=== PATIENT | male | born 1955 | race Caucasian/White ===

== ENCOUNTER 2016-11-21 17:04 | Emergency (ER) | payer OTHER ==
--- NOTE | 2016-11-21 18:21 | ED ORDER SUMMARY ---
..... Patient: CINTHIA JACKSON OrderSheet [facility] VisitID: [id number] [place] [address] 61y, M Registration Date/Time: 11/21/2016 ORDER SHEET Weight: 70.7 kg (stated) Allergies: Tape, Calamine, Latex, Penicillins, Phenergan, Trazodone GENERAL ORDERS: CBC w Diff Urgent (17:33 11/21/2016 EKoroleva P.A.-C) (17:42 JBoardley R.N.) POC Glucose (18:32 11/21/2016 EKoroleva P.A.-C) (19:00 Fernando R.N.) MEDICATION ORDERS: - (oxycodone 5 mg po now) (17:33 11/21/2016 EKoroleva P.A.-C) (Ack 17:34 JBoardley R.N.) (17:59 JBoardley R.N.) IV FLUIDS: ORDER SHEET NOTES: [Electronically signed by Antoinette DelgadoACamila-C (18:37 11/21/2016)] [Electronically signed by Megan Jessica R.N. (19:24 11/21/2016)] [Electronically locked/signed by Megan Jessica R.N. (19:24 11/21/2016)]
--- NOTE | 2016-11-21 18:21 | ED ORDER SUMMARY ---
..... Patient: CINTHIA JACKSON OrderSheet [facility] VisitID: [id number] [place] [address] 61y, M Registration Date/Time: 11/21/2016 ORDER SHEET Weight: 70.7 kg (stated) Allergies: Tape, Calamine, Latex, Penicillins, Phenergan, Trazodone GENERAL ORDERS: CBC w Diff Urgent (17:33 11/21/2016 EKoroleva P.A.-C) (17:42 JBoardley R.N.) POC Glucose (18:32 11/21/2016 EKoroleva P.A.-C) (19:00 Fernando R.N.) MEDICATION ORDERS: - (oxycodone 5 mg po now) (17:33 11/21/2016 EKoroleva P.A.-C) (Ack 17:34 JBoardley R.N.) (17:59 JBoardley R.N.) IV FLUIDS: ORDER SHEET NOTES: [Electronically signed by Antoinette DelgadoACamila-C (18:37 11/21/2016)] [Electronically signed by Megan Jessica R.N. (19:24 11/21/2016)] [Electronically locked/signed by Megan Jessica R.N. (19:24 11/21/2016)]
--- NOTE | 2016-11-21 18:21 | ED NURSING NOTES ---
Clinical Report - Nurses [address] [place] [address] 11/21/2016 17:05 Patient: CINTHIA JACKSON TRIAGE Triage time 17:11. Acuity: LEVEL 3. Chief Complaint: BACK PAIN. Alert. No acute distress. AVIVA COMA SCORE: Aviva Coma Scale: 15- eyes open spontaneously (4); best verbal response- oriented x 4 (5); best motor response- obeys commands (6). --17:31 Megan Jessica R.N. 17:09 11/21/16. BP: 167/83. HR: 94. RR: 16. O2 saturation: 96% on room air. Temp: 98.1 F (oral). Pain level now: 06/04. --17:31 Megan Jessica R.N. Weight: 70.7 kg stated. Height/Length: 63 inches Per Patient. BMI: 27.6. --17:30 Megan Jessica R.N. Medications Ativan Oral, last dose 3 days ago, ran out (taken away by new doctor about 4 months ago). --17:15 Megan Jessica R.N. HydrOXYzine HCl Oral 50 mg, 4x a day as needed. Tizanidine HCl Oral 4 mg 2 tabs, 4x a day (out). --17:16 Megan Jessica R.N. AmLODIPine Besylate Oral. --17:17 Megan Jessica R.N. Benadryl Oral. --17:17 Megan Jessica R.N. Combivent Respimat Inhalation. --17:17 Megan Jessica R.N. Flovent Diskus Inhalation. --17:17 Megan Jessica R.N. Medication/allergy information source: the patient and other. --17:31 Megan Jessica R.N. Allergies Tape. --17:18 Megan Jessica R.N. Calamine. Latex. Penicillins. Phenergan. Trazodone . --17:18 Megan Jessica R.N. History Arrived by EMS. Historian: EMS and patient. Accompanied by (EMS). Primary physician (Winston Westbrook). This is a recurrent problem. ( his pain clinic closed in May 2016, he had a Dilaudid Pain Pump removed 11/07/2016, he took too much of the Oxycodone and ran out, [facility] refused to refill; was also taking ativan and methadone that the wouldn't refill, seen @ clinic today(11/21/16)). History of recent trauma- fall (1 week). Occurred at home. Treatment ARMATURE WINDER: EMS treatment ARMATURE WINDER verbally communicated and report reviewed. See report. Finger stick glucose performed (145). Upon arrival patient awake. PAST MEDICAL HX: ( has apt @ Meth[facility]one clinic in 2 weeks). SOCIAL HX: Light tobacco smoker- less than 1/2 a pack per day. History of drug use: marijuana. No alcohol use. FALL RISK ASSESSMENT: Fall risk assessment completed. Risk factors identified include severe pain and patient history of fall and impairment of mobility. Fall interventions initiated. Patient placed on stretcher. Side rails up x2. Brakes on Bed in low position. FUNCTIONAL ASSESSMENT: Functional assessment performed: requires assistance with the activities of daily living; mobility impairment present- this mobility impairment is an ongoing problem. LEARNING NEEDS ASSESSMENT: A learning needs assessment was performed. Factors affecting the patient's ability to learn include motivation and physical limitations. --17:31 Megan Jessica R.N. PROBLEMS: Restless Legs Syndrome. COPD - Chronic Obstructive Pulmonary Disease. Myofascial Strain. Diabetes Mellitus. Hypertension. --17:22 Megan Jessica R.N. ADDITIONAL SURGERIES: Back Surgery. Tonsillectomy. --17:22 Megan Jessica R.N. Assessment GENERAL / NEURO / PSYCH: Alert. Oriented X 4. Appears in no acute distress. Patient appears calm and cooperative. RESPIRATORY: Respirations not labored. SKIN: Skin is warm and dry. --17:31 Megan Jessica R.N. Interventions ID and allergy band on patient. To treatment room. --17:31 Megan Jessica R.N. PHYSICAL ASSESSMENT 17:32 11/21/16. To room via stretcher. Patient gowned. GENERAL / NEURO / PSYCH: Alert. Oriented X 4. Appears in no acute distress. RESPIRATORY: Respirations not labored. --17:32 Megan Jessica R.N. NURSING PROGRESS NOTES 17:32 11/21/16. Head of bed elevated. Call light placed in reach. Side rails up x 2. Bed placed in lowest position. Brakes of bed on. --17:32 Megan Jessica R.N. 17:42 11/21/16. Blood samples drawn by lab. --17:42 Diogo Bowers R.N. 17:59 11/21/2016 Oxycodone PO 5 mg given. Allergies verified, confirmed 5 rights and sedative warning given to the patient. --17:59 Diogo Bowers R.N. 17:59 11/21/16. --17:59 Diogo Bowers R.N. 17:59 11/21/16. BP: 146/77. HR: 92. RR: 18. O2 saturation: 98% on room air. --17:59 Diogo Bowers R.N. 17:59 11/21/16. Patient informed about reason for wait and about plan of care. --18:00 Diogo Bowers R.N. 18:35. The patient is calm and resting quietly. Overall patient status is improved- he states feels better. GENERAL / NEURO / PSYCH: Alert. Oriented X 4. RESPIRATORY: No respiratory distress. SKIN: Skin is warm and dry. --19:01 Megan Jessica R.N. 18:35. Finger stick glucose: 84 mg/dL; performed by nurse; result shown to the PA. --19:22 Megan Jesisca R.N. DISPOSITION / DISCHARGE Departure time: 1834. Condition at departure: improved and stable. Fall risk assessment completed. Risk factors identified include severe pain and patient impairment of mobility. No learning barriers present. Discharge instructions provided and reviewed with the patient. Reviewed medication(s). Prescription(s) given to the patient. Patient verbalized understanding. Written instructions provided in Maltese. The patient was discharged home and unaccompanied at time of discharge. He left the Emergency Department ambulatory and via ([employer]). --19:19 Megan Jessica R.N. 18:59 11/21/16. BP: 143/80. HR: 89. RR: 16. O2 saturation: 97% on room air. Pain level now: 03/04. --19:19 Megan Jessica R.N. 18:35 sandwich, cheese and milk given @ DC. --19:23 Megan Jessica R.N. Locked/Released at 11/21/2016 19:24 by Megan Jessica R.N.
--- NOTE | 2016-11-21 18:21 | ED NURSING NOTES ---
Clinical Report - Nurses [address] [place] [address] 11/21/2016 17:05 Patient: CINTHIA JACKSON TRIAGE Triage time 17:11. Acuity: LEVEL 3. Chief Complaint: BACK PAIN. Alert. No acute distress. AVIVA COMA SCORE: Aviva Coma Scale: 15- eyes open spontaneously (4); best verbal response- oriented x 4 (5); best motor response- obeys commands (6). --17:31 Megan Jessica R.N. 17:09 11/21/16. BP: 167/83. HR: 94. RR: 16. O2 saturation: 96% on room air. Temp: 98.1 F (oral). Pain level now: 06/04. --17:31 Megan Jessica R.N. Weight: 70.7 kg stated. Height/Length: 63 inches Per Patient. BMI: 27.6. --17:30 Megan Jessica R.N. Medications Ativan Oral, last dose 3 days ago, ran out (taken away by new doctor about 4 months ago). --17:15 Megan Jessica R.N. HydrOXYzine HCl Oral 50 mg, 4x a day as needed. Tizanidine HCl Oral 4 mg 2 tabs, 4x a day (out). --17:16 Megan Jessica R.N. AmLODIPine Besylate Oral. --17:17 Megan Jessica R.N. Benadryl Oral. --17:17 Megan Jessica R.N. Combivent Respimat Inhalation. --17:17 Megan Jessica R.N. Flovent Diskus Inhalation. --17:17 Megan Jessica R.N. Medication/allergy information source: the patient and other. --17:31 Megan Jessica R.N. Allergies Tape. --17:18 Megan Jessica R.N. Calamine. Latex. Penicillins. Phenergan. Trazodone . --17:18 Megan Jessica R.N. History Arrived by EMS. Historian: EMS and patient. Accompanied by (EMS). Primary physician (Winston Westbrook). This is a recurrent problem. ( his pain clinic closed in May 2016, he had a Dilaudid Pain Pump removed 11/07/2016, he took too much of the Oxycodone and ran out, [facility] refused to refill; was also taking ativan and methadone that the wouldn't refill, seen @ clinic today(11/21/16)). History of recent trauma- fall (1 week). Occurred at home. Treatment ARTIST MODEL: EMS treatment ARTIST MODEL verbally communicated and report reviewed. See report. Finger stick glucose performed (145). Upon arrival patient awake. PAST MEDICAL HX: ( has apt @ Methadone clinic in 2 weeks). SOCIAL HX: Light tobacco smoker- less than 1/2 a pack per day. History of drug use: marijuana. No alcohol use. FALL RISK ASSESSMENT: Fall risk assessment completed. Risk factors identified include severe pain and patient history of fall and impairment of mobility. Fall interventions initiated. Patient placed on stretcher. Side rails up x2. Brakes on Bed in low position. FUNCTIONAL ASSESSMENT: Functional assessment performed: requires assistance with the activities of daily living; mobility impairment present- this mobility impairment is an ongoing problem. LEARNING NEEDS ASSESSMENT: A learning needs assessment was performed. Factors affecting the patient's ability to learn include motivation and physical limitations. --17:31 Megan Jessica R.N. PROBLEMS: Restless Legs Syndrome. COPD - Chronic Obstructive Pulmonary Disease. Myofascial Strain. Diabetes Mellitus. Hypertension. --17:22 Megan Jessica R.N. ADDITIONAL SURGERIES: Back Surgery. Tonsillectomy. --17:22 Megan Jessica R.N. Assessment GENERAL / NEURO / PSYCH: Alert. Oriented X 4. Appears in no acute distress. Patient appears calm and cooperative. RESPIRATORY: Respirations not labored. SKIN: Skin is warm and dry. --17:31 Megan Jessica R.N. Interventions ID and allergy band on patient. To treatment room. --17:31 Megan Jessica R.N. PHYSICAL ASSESSMENT 17:32 11/21/16. To room via stretcher. Patient gowned. GENERAL / NEURO / PSYCH: Alert. Oriented X 4. Appears in no acute distress. RESPIRATORY: Respirations not labored. --17:32 Megan Jessica R.N. NURSING PROGRESS NOTES 17:32 11/21/16. Head of bed elevated. Call light placed in reach. Side rails up x 2. Bed placed in lowest position. Brakes of bed on. --17:32 Megan Jessica R.N. 17:42 11/21/16. Blood samples drawn by lab. --17:42 Diogo Bowers R.N. 17:59 11/21/2016 Oxycodone PO 5 mg given. Allergies verified, confirmed 5 rights and sedative warning given to the patient. --17:59 Diogo Bowers R.N. 17:59 11/21/16. --17:59 Diogo Bowers R.N. 17:59 11/21/16. BP: 146/77. HR: 92. RR: 18. O2 saturation: 98% on room air. --17:59 Diogo Bowers R.N. 17:59 11/21/16. Patient informed about reason for wait and about plan of care. --18:00 Diogo Bowers R.N. 18:35. The patient is calm and resting quietly. Overall patient status is improved- he states feels better. GENERAL / NEURO / PSYCH: Alert. Oriented X 4. RESPIRATORY: No respiratory distress. SKIN: Skin is warm and dry. --19:01 Megan Jessica R.N. 18:35. Finger stick glucose: 84 mg/dL; performed by nurse; result shown to the PA. --19:22 Megan Jessica R.N. DISPOSITION / DISCHARGE Departure time: 1834. Condition at departure: improved and stable. Fall risk assessment completed. Risk factors identified include severe pain and patient impairment of mobility. No learning barriers present. Discharge instructions provided and reviewed with the patient. Reviewed medication(s). Prescription(s) given to the patient. Patient verbalized understanding. Written instructions provided in Yakut. The patient was discharged home and unaccompanied at time of discharge. He left the Emergency Department ambulatory and via ([employer]). --19:19 Megan Jessica R.N. 18:59 11/21/16. BP: 143/80. HR: 89. RR: 16. O2 saturation: 97% on room air. Pain level now: 03/04. --19:19 Megan Jessica R.N. 18:35 sandwich, cheese and milk given @ DC. --19:23 Megan Jessica R.N. Locked/Released at 11/21/2016 19:24 by Megan Jessica R.N.
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
--- NOTE | 2016-11-21 19:25 | ED MED RECONCILIATION SUMMARY ---
Patient: CINTHIA JACKSON Medication Reconciliation Report [facility] VisitID: [id number] [place] [address] 61y, M Registration Date/Time: 11/21/2016 Weight: 70.7 kg Height/Length: 63 in. BMI: 27.6 ALLERGIES: Calamine, Latex, Penicillins, Phenergan, Tape, Trazodone The patient's Home Medications are listed below: THE FOLLOWING MEDICATIONS NEED TO BE RECONCILED: AmLODIPine Besylate Oral Ativan Oral, last dose: 3 days ago, ran out , taken away by new doctor about 4 months ago Benadryl Oral Combivent Respimat Inhalation Flovent Diskus Inhalation HydrOXYzine HCl Oral 50 mg, 4x a day Tizanidine HCl Oral 4 mg 2 tabs, 4x a day, out The source(s) of the original Home Medication information: patient other The following Medications were given to the patient in the Emergency Department: Oxycodone [PO] PO 5 mg, administered: 11/21/2016 5:59:00 PM The following Medications were prescribed to the patient: Oxycodone 5 mg tablets: take 1 orally every 6 hours as needed for pain. Dispense five (5). No refill.(#5) -- Antoinette Delgado P.A.-C
--- NOTE | 2016-11-21 19:25 | ED MAR SUMMARY ---
..... Medication Administration Record [facility] [address] [place] [address] Patient: CINTHIA JACKSON Visit ID: [id number] 61y, M Weight: 70.7 kg Height/Length: 63 in BMI: 27.6 ALLERGIES: Penicillins, Trazodone , Phenergan, Latex, Calamine, Tape Given 17:59 11/21/2016 Diogo Bowers R.N. Medication Administered: OXYCODONE [PO], Dose: 5 mg PO. Medication Ordered: - (oxycodone 5 mg po now).
--- NOTE | 2016-11-21 19:25 | ED MED RECONCILIATION SUMMARY ---
Patient: CINTHIA JACKSON Medication Reconciliation Report [facility] VisitID: [id number] [place] [address] 61y, M Registration Date/Time: 11/21/2016 Weight: 70.7 kg Height/Length: 63 in. BMI: 27.6 ALLERGIES: Calamine, Latex, Penicillins, Phenergan, Tape, Trazodone The patient's Home Medications are listed below: THE FOLLOWING MEDICATIONS NEED TO BE RECONCILED: AmLODIPine Besylate Oral Ativan Oral, last dose: 3 days ago, ran out , taken away by new doctor about 4 months ago Benadryl Oral Combivent Respimat Inhalation Flovent Diskus Inhalation HydrOXYzine HCl Oral 50 mg, 4x a day Tizanidine HCl Oral 4 mg 2 tabs, 4x a day, out The source(s) of the original Home Medication information: patient other The following Medications were given to the patient in the Emergency Department: Oxycodone [PO] PO 5 mg, administered: 11/21/2016 5:59:00 PM The following Medications were prescribed to the patient: Oxycodone 5 mg tablets: take 1 orally every 6 hours as needed for pain. Dispense five (5). No refill.(#5) -- Antoinette Delgado P.A.-C
--- NOTE | 2016-11-21 19:25 | ED MAR SUMMARY ---
..... Medication Administration Record [facility] [address] [place] [address] Patient: CINTHIA JACKSON Visit ID: [id number] 61y, M Weight: 70.7 kg Height/Length: 63 in BMI: 27.6 ALLERGIES: Penicillins, Trazodone , Phenergan, Latex, Calamine, Tape Given 17:59 11/21/2016 Diogo Bowers R.N. Medication Administered: OXYCODONE [PO], Dose: 5 mg PO. Medication Ordered: - (oxycodone 5 mg po now).
--- NOTE | 2016-11-21 19:25 | ED DISCHARGE INSTRUCTIONS ---
Patient: CINTHIA JACKSON General Instructions [facility] VisitID: [id number] [place] [address] 61y, M Registration Date/Time: 11/21/2016 Chronic lumbar back pain. Post Op Complications (contact dermatitis at abdomen). INSTRUCTIONS Protect wound and keep wound area clean. Apply bacitracin twice daily. Prescription Medications: Oxycodone 5 mg tablets: take 1 orally every 6 hours as needed for pain. Dispense five (5). No refill. (#5) Follow-up: Follow up with your doctor tomorrow. Understanding of the discharge instructions verbalized by patient. ADDITIONAL INFORMATION Back Pain [Acute Or Chronic] Back pain is usually caused by an injury to the muscles or ligaments of the spine. Sometimes the disks that separate each bone in the spine may bulge and cause pain by pressing on a nearby nerve. Back pain may also appear after a sudden twisting/bending force (such as in a car accident), after a simple awkward movement, or lifting something heavy with poor body positioning. In either case, muscle spasm is often present and adds to the pain. Acute back pain usually gets better in one to two weeks. Back pain related to disk disease, arthritis in the spinal joints or spinal stenosis (narrowing of the spinal canal) can become chronic and last for months or years. Unless you had a physical injury (for example, a car accident or fall) X-rays are usually not ordered for the initial evaluation of back pain. If pain continues and does not respond to medical treatment, x-rays and other tests may be performed at a later time. Home Care: You may need to stay in bed the first few days. But, as soon as possible, begin sitting or walking to avoid problems with prolonged bed rest (muscle weakness, worsening back stiffness and pain, blood clots in the legs). When in bed, try to find a position of comfort. A firm mattress is best. Try lying flat on your back with pillows under your knees. You can also try lying on your side with your knees bent up towards your chest and a pillow between your knees. Avoid prolonged sitting. This puts more stress on the lower back than standing or walking. During the first two days after injury, apply an ICE PACK to the painful area for 20 minutes every 2-4 hours. This will reduce swelling and pain. HEAT (hot shower, hot bath or heating pad) works well for muscle spasm. You can start with ice, then switch to heat after two days. Some patients feel best alternating ice and heat treatments. Use the one method that feels the best to you. You may use acetaminophen (Tylenol) or ibuprofen (Motrin, Advil) to control pain, unless another pain medicine was prescribed. [NOTE: If you have chronic liver or kidney disease or ever had a stomach ulcer or GI bleeding, talk with your doctor before using these medicines.] Be aware of safe lifting methods and do not lift anything over 15 pounds until all the pain is gone. Follow Up with your doctor or this facility if your symptoms do not start to improve after one week. Physical therapy may be needed. [NOTE: If X-rays were taken, they will be reviewed by a radiologist. You will be notified of any new findings that may affect your care.] Get Prompt Medical Attention if any of the following occur: Pain becomes worse or spreads to your legs Weakness or numbness in one or both legs Loss of bowel or bladder control Numbness in the groin or genital area You have been given the following additional information: Back Pain (Acute Or Chronic) (Electronically signed by Antoinette Delgado P.A.-C 11/21/2016 18:37)
== END 2016-11-21 18:35 | disposition home or self-care (01) ==
LOC: ED SRH 17:04
DX: M54.5 Low back pain (principal); G89.29 Other chronic pain; L25.8 Unspecified contact dermatitis due to other agents; J44.9 Chronic obstructive pulmonary disease, unspecified; E11.9 Type 2 diabetes mellitus without complications; I10 Essential (primary) hypertension; Z79.899 Other long term (current) drug therapy; F17.210 Nicotine dependence, cigarettes, uncomplicated; Z88.0 Allergy status to penicillin; Z88.8 Allergy status to other drugs, medicaments and biological substances
CPT/HCPCS: 90074; 90098; 95059

== ENCOUNTER 2016-11-30 18:47 | Emergency (ER) | payer OTHER ==
--- NOTE | 2016-11-30 22:00 | ED ORDER SUMMARY ---
..... Patient: CINTHIA JACKSON OrderSheet [facility] VisitID: [id number] [place] [address] 61y, M Registration Date/Time: 11/30/2016 ORDER SHEET Weight: 68.4 kg (stated) Allergies: Calamine, Latex, Penicillins, Phenergan, Tape, Trazodone , Sulfamethoxazole GENERAL ORDERS: CBC w Diff Urgent (19:34 11/30/2016 TBowen R.N. per protocol) (Ack 19:34 TBowen R.N.) (19:34 TBowen R.N.) CMP Urgent (19:34 11/30/2016 TBowen R.N. per protocol) (Ack 19:34 TBowen R.N.) (19:34 TBowen R.N.) Chest 2V Urgent (21:22 11/30/2016 Sandip GIRON) (Ack 21:23 SRedmond) (21:51 MCampbell) MEDICATION ORDERS: Doxycycline Monohydrate PO 100 mg (NOW) (21:38 11/30/2016 Sandip GIRON) (21:57 TBowen R.N.) IV FLUIDS: IV NS : initial bolus 1000 mL (1000 mL/hr), then none - (NOW) (20:12 11/30/2016 Sandip GIRON) (20:29 TBowen R.N.) Zofran IV 8 mg (NOW) (20:12 11/30/2016 Sandip GIRON) (20:29 TBowkenji R.N.) ORDER SHEET NOTES: [Electronically signed by Maude Kohli R.N. (22:10 11/30/2016)] [Electronically signed by Chanel Olivares MD (22:12 12/05/2016)] [Electronically locked/signed by Maude Kohli R.N. (22:10 11/30/2016)]
--- NOTE | 2016-11-30 22:00 | ED NURSING NOTES ---
Clinical Report - [facility] [address] [place] [address] 11/30/2016 18:47 Patient: CINTHIA JACKSON TRIAGE Triage time 19:Nov 30 2016. Acuity: LEVEL 3. Chief Complaint: ABDOMINAL PAIN. Alert. No acute distress. --19:16 Lorna East R.N. 19:09 11/30/16. BP: 141/75. HR: 99. RR: 18. O2 saturation: 97%. Temp: 98.2 F. Pain level now 06/04. --19:16 Lorna East R.N. Weight: 68.4 kg stated. Height/Length: 63 inches Per Patient. BMI: 26.7. --19:09 Lorna East R.N. Medications AmLODIPine Besylate Oral. Ativan Oral, last dose 3 days ago, ran out (taken away by new doctor about 4 months ago). Benadryl Oral. Combivent Respimat Inhalation. Flovent Diskus Inhalation. HydrOXYzine HCl Oral 50 mg, 4x a day as needed. Tizanidine HCl Oral 4 mg 2 tabs, 4x a day (out). --19:12 Lorna East R.N. Medication/allergy information source: the patient. --19:16 Lorna East R.N. Allergies Calamine. Latex. Penicillins. Phenergan. Tape. Trazodone . --19:12 Lorna East R.N. Sulfamethoxazole. (pt states he broke out with a rash while taking this. Last dose was 11/29/16.) --19:13 Lorna East R.N. History Arrived by EMS. Historian: patient. Primary physician (Dr. Gage Cook [facility]). ( Intra Thecal Pain pump removed from the abdomen on the right side of abdomen on November 07 at the . Pt now has redness and possible infection at the site. (most care is at the ). Pt lives in [place], came up here because he will not go to [employer]. Pt will take [facility] home. Pt also concerned about a cough he has.). Treatment WOOD BUFFER: None. PAST MEDICAL HX: Immunizations: seasonal influenza. SOCIAL HX: Former smoker. History of drug use: marijuana. No alcohol use. No recent travel. No infectious disease exposure. No known contact with a sick individual. FALL RISK ASSESSMENT: Fall risk assessment completed. No fall risk identified. NUTRITIONAL RISK ASSESSMENT: The nutritional risk assessment revealed no deficiencies. FUNCTIONAL ASSESSMENT: Functional assessment: no impairments noted. LEARNING NEEDS ASSESSMENT: The learning needs assessment revealed no barriers. SKIN INTEGRITY ASSESSMENT: Skin integrity risk assessment completed. No skin integrity risk identified. --19:16 Lorna East R.N. PROBLEMS: Back Pain. Restless Legs Syndrome. COPD - Chronic Obstructive Pulmonary Disease. Myofascial Strain. Diabetes Mellitus. Hypertension. --19:13 Lorna East R.N. ADDITIONAL SURGERIES: Back Surgery. Tonsillectomy. --19:13 Lorna East R.N. Interventions ID band on patient. To room. --19:16 Lorna East R.N. PHYSICAL ASSESSMENT To room via stretcher. ( pt has redness to RLQ pt states is from a surg, it is tender to the touch and has some swelling). GENERAL / NEURO / PSYCH: Alert. Oriented X 4. Appears in no acute distress. HEENT: Mucous membranes are pink. RESPIRATORY: Respirations not labored. Breath sounds within normal limits. CVS: Normal sinus rhythm noted. Capillary refill less than 2 seconds. GI / : Abdominal scar present in the right lower quadrant. SKIN: Skin is warm. Skin rash. --19:27 Olinda Barrera NURSING PROGRESS NOTES Patient ready for evaluation- ED physician and TACKING STITCH REMOVER notified. --19:16 Lorna East R.N. 19:25 11/30/2016 Site #1 started via IV in the right forearm with an 20g angiocath, with aseptic technique and good blood return; two attempts. Blood drawn: rainbow set. Labeled in the presence of the patient and sent to the lab. Saline lock flushed with saline. --19:25 TonyaB, R.N. Patient identifiers checked. Call light placed in reach. Side rails up x 1. Bed placed in lowest position. Brakes of bed on. --19:25 Olinda Barrera 20:11/30/2016 Zofran (Ondansetron HCl) IVP 4 mg given over 2 minute(s) via site #1. Allergies verified and confirmed 5 rights. IV patency established. IV site checked: no pain, redness, or swelling. IV flushed thoroughly pre- and post-medication administration. IVP given by RN. --20:29 Olinda Barrera 20:29 11/30/2016 Started bag #1 1000 mL IV Fluids IV NS (Saline); at 1000 mL/hr over 1 hour(s) via site #1 via dial-a-flow. Allergies verified and confirmed 5 rights. IV patency established. IV site checked: no pain, redness, or swelling. IV flushed thoroughly pre- and post-medication administration. --20:29 Olinda Barrera 21:43 11/30/2016 IV Fluids IV NS Discontinued: bag #1 completed upon discharge. Total amount infused: 1000 mL. IV patency established. IV site checked: no pain, redness, or swelling. IV flushed thoroughly. --22:08 Olinda Barrera 21:57 11/30/2016 DOXYCYCLINE MONOHYDRATE PO 100 mg given. Allergies verified and confirmed 5 rights. --21:57 Olinda Barrera DISPOSITION / DISCHARGE 22:11/30/2016 Site #1 removed upon discharge. Catheter intact. Bandaid applied. --22: Olinad Barrera Departure time: 22:10. Condition at departure: improved. No learning barriers present. Reviewed warnings. Reviewed medication(s) side effects, precautions, dosing and course information. Prescription(s) given to the patient. Follow up contact number follow up with PCP. Patient verbalized understanding. Written instructions provided in Maltese. No treatment instructions, referrals given to the patient, diet instructions, activity restrictions or note given. No stop smoking instructions. The patient was discharged by the physician. He was discharged home and unaccompanied at time of discharge. He left the Emergency Department in a wheelchair and via private vehicle. Driving ([employer]). FALL RISK ASSESSMENT: Fall risk assessment completed. No fall risk identified. --22:10 Olinda Barrera 22:08 11/30/16. BP: 148/75. HR: 72. RR: 18. O2 saturation: 97%. Temp: 98.2 F. Pain level now: 10/05. --22:10 Olinda Barrera Locked/Released at 11/30/2016 22:10 by Olinda Barrera
--- NOTE | 2016-11-30 22:00 | ED CLINICAL REPORT ---
Clinical Report - Physicians/Mid Levels [facility] [address] [place] [address] 11/30/2016 18:47 Patient: CINTHIA JACKSON Time Seen: 19:27. Arrived- By private vehicle. Historian- patient. HISTORY OF PRESENT ILLNESS Chief Complaint: ABDOMINAL PAIN and VOMITING cough. At its maximum, severity described as moderate. When seen in the E.D., severity described as moderate. Modifying factors. Not worsened by anything. Not relieved by anything. It is described as cramping and it is described as located in the left upper quadrant. This started yesterday for vomiting; 3 days ago for cough; Pt also c/o infection at incision site. and is still present. The patient has had nausea and vomiting. No diarrhea. No recent travel. Similar symptoms previously: Recent medical care: Not recently seen/assessed. REVIEW OF SYSTEMS No constipation, black stools, hematemesis, difficulty with urination or pain with urination. No urinary frequency, fever, headache, sore throat or blurred vision. No chest pain, difficulty breathing, joint pain, skin rash or chills. No back pain. The patient has had a cough. No productive cough. All systems otherwise negative, except as recorded above. PAST HISTORY Problems: Back Pain. Restless Legs Syndrome. COPD - Chronic Obstructive Pulmonary Disease. Myofascial Strain. Diabetes Mellitus. Hypertension. Additional Surgeries: Back Surgery. Tonsillectomy. Medications: AmLODIPine Besylate Oral. Ativan Oral, last dose 3 days ago, ran out (taken away by new doctor about 4 months ago). Benadryl Oral. Combivent Respimat Inhalation. Flovent Diskus Inhalation. HydrOXYzine HCl Oral 50 mg, 4x a day as needed. Tizanidine HCl Oral 4 mg 2 tabs, 4x a day (out). Allergies: Calamine. Latex. Penicillins. Phenergan. Sulfamethoxazole. (pt states he broke out with a rash while taking this. Last dose was 11/29/16.) Tape. Trazodone . SOCIAL HISTORY Former smoker. History of drug use: marijuana. No alcohol use. ADDITIONAL NOTES The nursing notes have been reviewed. PHYSICAL EXAM Vital Signs: 11/30/2016 19:09 BP: 141/75. HR: 99. RR: 18. O2 saturation: 97%. Temp: 98.2 F. Have been reviewed. Appearance: Alert. Oriented X3. No acute distress. Eyes: Pupils equal, round and reactive to light. Eyes normal inspection. ENT: Nose normal. Neck: Normal inspection. CVS: Normal heart rate and rhythm. Heart sounds normal. Pulses normal. Respiratory: No respiratory distress. Breath sounds normal. Abdomen: Soft. Moderate tenderness in the left upper quadrant. No guarding or rebound tenderness. (Pt has a healing incision site with erythema and excoriations surrounding, on his R abdomen. No wound dehiscence or induration.). Back: Normal inspection. No CVA tenderness. Skin: Skin warm and dry. Extremities: Extremities exhibit normal ROM. No lower extremity edema. Neuro: Oriented X 3. No motor deficit. No sensory deficit. LABS, X-RAYS, AND EKG Laboratory Tests: CBC w Diff: (EDGAR: 11/30/2016 19:20) ( MsgRcvd 11/30/2016 20:33) Final results Test Result Flag Units (Reference) WHITE BLOOD COUNT 8.2 K/uL (4.5-11.5) RED BLOOD COUNT 4.97 M/uL (4.50-5.90) HEMOGLOBIN 12.7 L gm/dL (13.5-17.5) HEMATOCRIT 38.7 L % (41.0-53.0) MEAN CELL VOLUME 78 L fL (80-100) MEAN CORPUSCULAR HGB 26 pg (26-34) MEAN CORPUSCULAR HGB CONC 33 g/dL (31-37) RED CELL DISTRIBUTION WIDTH 20.3 H % (11.6-14.8) PLATELET COUNT 149 L K/uL (150-400) NEUTROPHIL % 75.1 H % (50-75) LYMPH % 12.6 L % (25-40) MONO % 8.3 % (3-14) EOSINOPHIL % 4.0 % (0-4) BASOPHIL % 0 % (0-2) RBC MORPHOLOGY 2+ ANISOCYTOSIS CMP: (EDGAR: 11/30/2016 19:20) ( MsgRcvd 11/30/2016 20:18) Final results Test Result Flag Units (Reference) GLUCOSE 110 mg/dL (70-110) BUN 6 L mg/dL (7-18) CREATININE 0.9 mg/dL (0.6-1.3) Estimated GFR >60 mL/min Estimated GFR- >60 mL/min Note: Persistent reduction over 3 months in eGFR<60 mL/min/1.73 m2 defines CKD. Patients with eGFR values>=60 mL/min/1.73 m2 may also have CKD if evidence ofpersistent proteinuria. Additional information may be foundat www.kidney.org. SODIUM 139 mmol/L (136-145) POTASSIUM 3.7 mmol/L (3.5-5.1) CHLORIDE 101 mmol/L (98-107) CARBON DIOXIDE 26 mmol/L (21-32) CALCIUM 8.8 mg/dL (8.5-10.1) TOTAL PROTEIN 8.1 g/dL (6.4-8.2) ALBUMIN 3.6 g/dL (3.3-5.0) BILIRUBIN, TOTAL 1.0 mg/dL (0.0-1.0) ALKALINE PHOSPHATASE 121 H U/L (46-116) AST (SGOT) 21 U/L (15-37) ALT (SGPT) 26 U/L (12-78) . Pulse Oximetry: 11/30/2016 19:09 O2 saturation: 97%. (FIO2 - room air). Interpretation: normal. PROGRESS AND PROCEDURES Course of Care: Pt was given a liter of NS and IV Zofran for nausea. He was started on doxycycline for his wound infection. Labs were unremarkable. No emergent condition identified. Patient counseled in person regarding the patient's stable condition, test results, diagnosis and need for follow-up. Concerns were addressed. Old medical records reviewed. Disposition: Discharged. Condition: stable and improved. CLINICAL IMPRESSION Vomiting with nausea. Acute viral bronchitis. Post-operative complication from skin surgery- cellulitis. INSTRUCTIONS Drink plenty of fluids. (Your x-ray and labs look good.). Warnings: GENERAL WARNINGS: Return or contact your physician immediately if your condition worsens or changes unexpectedly, if not improving as expected, or if other problems arise. Your Current Medications: CONTINUE TAKING THE FOLLOWING MEDICATIONS: AmLODIPine Besylate Oral. Ativan Oral : Last: 3 days ago, ran out, taken away by new doctor about 4 months ago. Benadryl Oral. Combivent Respimat Inhalation. Flovent Diskus Inhalation. HydrOXYzine HCl Oral : 50 mg 4x a day, prn. Tizanidine HCl Oral : 4 mg 2 tabs 4x a day, out. Prescription Medications: Zofran (orally disintegrating tablets) 4 mg: take 1-2 orally every 6 hours as needed for nausea. Dispense fifteen (15). No refill. Substitution is permissible. Doxycycline 100 mg: Take 1 capsule orally every 12 hours for 7 days. No refill. Follow-up: Follow up with your doctor. Call for the next available appointment. Reason for referral: Follow up ER visit. Understanding of the discharge instructions verbalized by patient. (Electronically signed by Chanel Olivares MD 12/05/2016 22:12)
--- NOTE | 2016-11-30 22:00 | ED NURSING NOTES ---
Clinical Report - Nurses [facility] [address] [place] [address] 11/30/2016 18:47 Patient: CINTHIA JACKSON TRIAGE Triage time 19:Nov 30 2016. Acuity: LEVEL 3. Chief Complaint: ABDOMINAL PAIN. Alert. No acute distress. --19:16 Lorna East R.N. 19:09 11/30/16. BP: 141/75. HR: 99. RR: 18. O2 saturation: 97%. Temp: 98.2 F. Pain level now 06/04. --19:16 Lorna East R.N. Weight: 68.4 kg stated. Height/Length: 63 inches Per Patient. BMI: 26.7. --19:09 Lorna East R.N. Medications AmLODIPine Besylate Oral. Ativan Oral, last dose 3 days ago, ran out (taken away by new doctor about 4 months ago). Benadryl Oral. Combivent Respimat Inhalation. Flovent Diskus Inhalation. HydrOXYzine HCl Oral 50 mg, 4x a day as needed. Tizanidine HCl Oral 4 mg 2 tabs, 4x a day (out). --19:12 Lorna East R.N. Medication/allergy information source: the patient. --19:16 Lorna East R.N. Allergies Calamine. Latex. Penicillins. Phenergan. Tape. Trazodone . --19:12 Lorna East R.N. Sulfamethoxazole. (pt states he broke out with a rash while taking this. Last dose was 11/29/16.) --19:13 Lorna East R.N. History Arrived by EMS. Historian: patient. Primary physician (Dr. Gage Cook [facility]). ( Intra Thecal Pain pump removed from the abdomen on the right side of abdomen on November 07 at the . Pt now has redness and possible infection at the site. (most care is at the ). Pt lives in [place], came up here because he will not go to [employer]. Pt will take [facility] home. Pt also concerned about a cough he has.). Treatment RECORDING CLERK: None. PAST MEDICAL HX: Immunizations: seasonal influenza. SOCIAL HX: Former smoker. History of drug use: marijuana. No alcohol use. No recent travel. No infectious disease exposure. No known contact with a sick individual. FALL RISK ASSESSMENT: Fall risk assessment completed. No fall risk identified. NUTRITIONAL RISK ASSESSMENT: The nutritional risk assessment revealed no deficiencies. FUNCTIONAL ASSESSMENT: Functional assessment: no impairments noted. LEARNING NEEDS ASSESSMENT: The learning needs assessment revealed no barriers. SKIN INTEGRITY ASSESSMENT: Skin integrity risk assessment completed. No skin integrity risk identified. --19:16 Lorna East R.N. PROBLEMS: Back Pain. Restless Legs Syndrome. COPD - Chronic Obstructive Pulmonary Disease. Myofascial Strain. Diabetes Mellitus. Hypertension. --19:13 Lorna East R.N. ADDITIONAL SURGERIES: Back Surgery. Tonsillectomy. --19:13 Lorna East R.N. Interventions ID band on patient. To room. --19:16 Lorna East R.N. PHYSICAL ASSESSMENT To room via stretcher. ( pt has redness to RLQ pt states is from a surg, it is tender to the touch and has some swelling). GENERAL / NEURO / PSYCH: Alert. Oriented X 4. Appears in no acute distress. HEENT: Mucous membranes are pink. RESPIRATORY: Respirations not labored. Breath sounds within normal limits. CVS: Normal sinus rhythm noted. Capillary refill less than 2 seconds. GI / : Abdominal scar present in the right lower quadrant. SKIN: Skin is warm. Skin rash. --19:27 Olinda Barrera NURSING PROGRESS NOTES Patient ready for evaluation- ED physician and THERMAL INTELLIGENCE ANALYST notified. --19:16 Lorna East R.N. 19:25 11/30/2016 Site #1 started via IV in the right forearm with an 20g angiocath, with aseptic technique and good blood return; two attempts. Blood drawn: rainbow set. Labeled in the presence of the patient and sent to the lab. Saline lock flushed with saline. --19:25 TonyaB, R.N. Patient identifiers checked. Call light placed in reach. Side rails up x 1. Bed placed in lowest position. Brakes of bed on. --19:25 Olinda Barrera 20:11/30/2016 Zofran (Ondansetron HCl) IVP 4 mg given over 2 minute(s) via site #1. Allergies verified and confirmed 5 rights. IV patency established. IV site checked: no pain, redness, or swelling. IV flushed thoroughly pre- and post-medication administration. IVP given by RN. --20:29 Olinda Barrera 20:29 11/30/2016 Started bag #1 1000 mL IV Fluids IV NS (Saline); at 1000 mL/hr over 1 hour(s) via site #1 via dial-a-flow. Allergies verified and confirmed 5 rights. IV patency established. IV site checked: no pain, redness, or swelling. IV flushed thoroughly pre- and post-medication administration. --20:29 Olinda Barrera 21:43 11/30/2016 IV Fluids IV NS Discontinued: bag #1 completed upon discharge. Total amount infused: 1000 mL. IV patency established. IV site checked: no pain, redness, or swelling. IV flushed thoroughly. --22:08 Olinda Barrera 21:57 11/30/2016 DOXYCYCLINE MONOHYDRATE PO 100 mg given. Allergies verified and confirmed 5 rights. --21:57 Olinda Barrera DISPOSITION / DISCHARGE 22:11/30/2016 Site #1 removed upon discharge. Catheter intact. Bandaid applied. --22: Olinda Barrera Departure time: 22:10. Condition at departure: improved. No learning barriers present. Reviewed warnings. Reviewed medication(s) side effects, precautions, dosing and course information. Prescription(s) given to the patient. Follow up contact number follow up with PCP. Patient verbalized understanding. Written instructions provided in American. No treatment instructions, referrals given to the patient, diet instructions, activity restrictions or note given. No stop smoking instructions. The patient was discharged by the physician. He was discharged home and unaccompanied at time of discharge. He left the Emergency Department in a wheelchair and via private vehicle. Driving (2C2P). FALL RISK ASSESSMENT: Fall risk assessment completed. No fall risk identified. --22:10 Olinda Barrera 22:08 11/30/16. BP: 148/75. HR: 72. RR: 18. O2 saturation: 97%. Temp: 98.2 F. Pain level now: 10/05. --22:10 Olinda Barrera Locked/Released at 11/30/2016 22:10 by Olinda Barrera
--- NOTE | 2016-11-30 22:00 | ED ORDER SUMMARY ---
..... Patient: CINTHIA JACKSON OrderSheet [facility] VisitID: [id number] [place] [address] 61y, M Registration Date/Time: 11/30/2016 ORDER SHEET Weight: 68.4 kg (stated) Allergies: Calamine, Latex, Penicillins, Phenergan, Tape, Trazodone , Sulfamethoxazole GENERAL ORDERS: CBC w Diff Urgent (19:34 11/30/2016 TBowen R.N. per protocol) (Ack 19:34 TBowen R.N.) (19:34 TBowen R.N.) CMP Urgent (19:34 11/30/2016 TBowen R.N. per protocol) (Ack 19:34 TBowen R.N.) (19:34 TBowen R.N.) Chest 2V Urgent (21:22 11/30/2016 Sandip GIRON) (Ack 21:23 SRedmond) (21:51 MCampbell) MEDICATION ORDERS: Doxycycline Monohydrate PO 100 mg (NOW) (21:38 11/30/2016 Sandip GIRON) (21:57 TBowen R.N.) IV FLUIDS: IV NS : initial bolus 1000 mL (1000 mL/hr), then none - (NOW) (20:12 11/30/2016 Sandip GIRON) (20:29 TBowen R.N.) Zofran IV 8 mg (NOW) (20:12 11/30/2016 Sandip GIRON) (20:29 TBowkenji R.N.) ORDER SHEET NOTES: [Electronically signed by Maude Kohli R.N. (22:10 11/30/2016)] [Electronically signed by Chanel Olivares MD (22:12 12/05/2016)] [Electronically locked/signed by Maude Kohli R.N. (22:10 11/30/2016)]
--- NOTE | 2016-11-30 23:38 | DIAGNOSTIC IMAGING REPORT ---
PROCEDURE: XR CHEST 2 VIEW INDICATION: COUGH TECHNIQUE: PA and lateral views. COMPARISON: Compared to chest x-ray on 05/28/2010. FINDINGS: Allowing for lordotic positioning, lungs are clear. Heart and mediastinum are normal. Thorax is normal. IMPRESSION: 1. Negative chest.
--- NOTE | 2016-12-05 22:13 | ED MAR SUMMARY ---
..... Medication Administration Record [facility] [address] [place] [address] Patient: CINTHIA JACKSON Visit ID: [id number] 61y, M Weight: 68.4 kg Height/Length: 63 in BMI: 26.7 ALLERGIES: Sulfamethoxazole, Calamine, Latex, Penicillins, Phenergan, Tape, Trazodone Start 20:29 11/30/2016 Holly RBird, Stop 21:43 11/30/2016 Olinda Barrera Medication Administered: IV NS (SALINE), Dose: IV Fluids over 1 hour(s), Rate: 1000 mL/hr, Dispensed: 1000 mL bag, Site: #1 right forearm. Medication Ordered: IV NS : initial bolus 1000 mL (1000 mL/hr), then none - (NOW). Given 20:29 11/30/2016 Olinda Barrera Medication Administered: ZOFRAN [IVP] (ONDANSETRON HCL), Dose: 4 mg IVP over 2 minute(s), Site: #1 right forearm. Medication Ordered: Zofran IV 8 mg (NOW). Given 21:57 11/30/2016 Olinda Barrera Medication Administered: DOXYCYCLINE MONOHYDRATE [PO], Dose: 100 mg PO. Medication Ordered: Doxycycline Monohydrate PO 100 mg (NOW).
--- NOTE | 2016-12-05 22:13 | ED DISCHARGE INSTRUCTIONS ---
Patient: CINTHIA JACKSON General Instructions [facility] VisitID: [id number] [place] [address] 61y, M Registration Date/Time: 11/30/2016 Vomiting with nausea. Acute viral bronchitis. Post-operative complication from skin surgery- cellulitis. INSTRUCTIONS Drink plenty of fluids. (Your x-ray and labs look good.). Warnings: GENERAL WARNINGS: Return or contact your physician immediately if your condition worsens or changes unexpectedly, if not improving as expected, or if other problems arise. Your Current Medications: CONTINUE TAKING THE FOLLOWING MEDICATIONS: AmLODIPine Besylate Oral. Ativan Oral : Last: 3 days ago, ran out, taken away by new doctor about 4 months ago. Benadryl Oral. Combivent Respimat Inhalation. Flovent Diskus Inhalation. HydrOXYzine HCl Oral : 50 mg 4x a day, prn. Tizanidine HCl Oral : 4 mg 2 tabs 4x a day, out. Prescription Medications: Zofran (orally disintegrating tablets) 4 mg: take 1-2 orally every 6 hours as needed for nausea. Dispense fifteen (15). No refill. Substitution is permissible. Doxycycline 100 mg: Take 1 capsule orally every 12 hours for 7 days. No refill. Follow-up: Follow up with your doctor. Call for the next available appointment. Reason for referral: Follow up ER visit. Understanding of the discharge instructions verbalized by patient. ADDITIONAL INFORMATION Vomiting [6Yr-Adult] Vomiting is a common symptom that may be due to different causes. These include gastroenteritis ("stomach flu"), food poisoning and gastritis. There are other more serious causes of vomiting which may be hard to diagnose early in the illness. Therefore, it is important to watch for the warning signs listed below. The main danger from repeated vomiting is dehydration. This is due to excess loss of water and minerals from the body. When this occurs, body fluids must be replaced. Home Care: If symptoms are severe, rest at home for the next 24 hours. You may use acetaminophen (Tylenol) or ibuprofen (Motrin, Advil) to control fever, unless another medicine was prescribed. [NOTE : If you have chronic liver or kidney disease or ever had a stomach ulcer or GI bleeding, talk with your doctor before using these medicines.] (Aspirin should never be used in anyone under 18 years of age who is ill with a fever. It may cause severe liver damage.) Avoid tobacco and alcohol use, which may worsen your symptoms. If medicines for vomiting were prescribed, take as directed. Once vomiting stops, then follow these guidelines: During The First 12-24 Hours follow the diet below: FRUIT JUICES: Apple, grape juice, clear fruit drinks, and electrolyte replacement drinks. BEVERAGES: Soft drinks without caffeine; mineral water (plain or flavored), decaffeinated tea and coffee. SOUPS: Clear broth, consomm and bouillon DESSERTS: Plain gelatin, popsicles and fruit juice bars. As you feel better, you may add 6-8 ounces of yogurt per day. During The Next 24 Hours you may add the following to the above: Hot cereal, plain toast, bread, rolls, crackers Plain noodles, rice, mashed potatoes, chicken noodle or rice soup Unsweetened canned fruit (avoid pineapple), bananas Limit caffeine and chocolate. No spices or seasonings except salt. During The Next 24 Hours Gradually resume a normal diet, as you feel better and your symptoms lessen. Follow Up with your doctor as advised if you are not improving over the next 2-3 days. Get Prompt Medical Attention if any of the following occur: Constant right-sided lower abdominal pain or increasing general abdominal pain Continued vomiting (unable to keep liquids down) for 24 hours Frequent diarrhea (more than 5 times a day); blood (red or black color) or mucus in diarrhea Reduced urine output or extreme thirst Weakness, dizziness or fainting Unusually drowsy or confused Fever of 100.4F (38C) oral or higher, not better with fever medication Yellow color of the eyes or skin Bronchitis, Viral (Adult: No Abx) You have a viral bronchitis. This illness is contagious during the first few days and is spread through the air by coughing and sneezing, or by direct contact (touching the sick person and then touching your own eyes, nose, or mouth). Most viral illnesses resolve within 10-14 days with rest and simple home remedies, although they may sometimes last for several weeks. Antibiotics will not kill a virus and are generally not prescribed for this condition. Home Care: If symptoms are severe, rest at home for the first 2-3 days. When resuming activity, don't let yourself become overly tired. Do not smoke and avoid the smoke of others. You may use acetaminophen (Tylenol) or ibuprofen (Motrin, Advil) to control fever or pain, unless another pain medicine was prescribed. [NOTE: If you have chronic liver or kidney disease or ever had a stomach ulcer or GI bleeding, talk with your doctor before using these medicines.] (Aspirin should never be used in anyone under 18 years of age who is ill with a fever. It may cause severe liver damage.) Your appetite may be poor so a light diet is fine. Avoid dehydration by drinking 6-8 glasses of fluids per day (water, sport drinks such as Gatorade, juices, tea, soup, etc.). Extra fluids will help loosen secretions in the nose and lung. Cedq-[id number] cold medicines will not shorten the length of the illness, but may be helpful for cough (Robitussin DM), sore throat (Chloraseptic lozenges or spray), nasal and sinus congestion (Actifed or Sudafed). [NOTE: Do not use decongestants if you have high blood pressure.] Follow Up with your doctor or as directed by our staff if you are not improving over the next week. NOTE: If you are age 65 or older, or if you have chronic asthma or COPD, we recommend a PNEUMOCOCCAL VACCINATION every five years and a yearly INFLUENZAVACCINATION (FLU-SHOT) every . Ask your doctor about this. If you had an X-ray, a radiologist will review it. You will be notified of any new findings that may affect your care.] Get Prompt Medical Attention if any of the following occur: Fever over 100.4F (38.0C) for more than three days Trouble breathing, wheezing or pain with breathing Coughing up blood or increased amounts of colored sputum Weakness, drowsiness, headache, facial pain, ear pain or a stiff neck You have been given the following additional information: Vomiting (6Y-Adult) Bronchitis, No Antibiotic (Adult) (Electronically signed by Chanel Olivares MD 12/05/2016 22:12)
--- NOTE | 2016-12-05 22:13 | ED MED RECONCILIATION SUMMARY ---
Patient: CINTHIA JACKSON Medication Reconciliation Report [facility] VisitID: [id number] [place] [address] 61y, M Registration Date/Time: 11/30/2016 Weight: 68.4 kg Height/Length: 63 in. BMI: 26.7 ALLERGIES: Calamine, Latex, Penicillins, Phenergan, Sulfamethoxazole, Tape, Trazodone The patient's Home Medications are listed below: CONTINUE TAKING THE FOLLOWING MEDICATIONS: AmLODIPine Besylate Oral Ativan Oral, last dose: 3 days ago, ran out , taken away by new doctor about 4 months ago Benadryl Oral Combivent Respimat Inhalation Flovent Diskus Inhalation HydrOXYzine HCl Oral 50 mg, 4x a day Tizanidine HCl Oral 4 mg 2 tabs, 4x a day, out The source(s) of the original Home Medication information: patient The following Medications were given to the patient in the Emergency Department: Zofran [IVP] IVP 4 mg, administered: 11/30/2016 8:29:00 PM IV NS IV Fluids bolus 0, then 1000 mL/hr, administered: 11/30/2016 8:29:00 PM DOXYCYCLINE MONOHYDRATE [PO] PO 100 mg, administered: 11/30/2016 9:57:00 PM The following Medications were prescribed to the patient: Zofran (orally disintegrating tablets) 4 mg: take 1-2 orally every 6 hours as needed for nausea. Dispense fifteen (15). No refill. Substitution is permissible. -- Chanel Olivares MD Doxycycline 100 mg: Take 1 capsule orally every 12 hours for 7 days. No refill. -- Chanel Olivares MD
--- NOTE | 2016-12-05 22:13 | ED MED RECONCILIATION SUMMARY ---
Patient: CINTHIA JACKSON Medication Reconciliation Report [facility] VisitID: [id number] [place] [address] 61y, M Registration Date/Time: 11/30/2016 Weight: 68.4 kg Height/Length: 63 in. BMI: 26.7 ALLERGIES: Calamine, Latex, Penicillins, Phenergan, Sulfamethoxazole, Tape, Trazodone The patient's Home Medications are listed below: CONTINUE TAKING THE FOLLOWING MEDICATIONS: AmLODIPine Besylate Oral Ativan Oral, last dose: 3 days ago, ran out , taken away by new doctor about 4 months ago Benadryl Oral Combivent Respimat Inhalation Flovent Diskus Inhalation HydrOXYzine HCl Oral 50 mg, 4x a day Tizanidine HCl Oral 4 mg 2 tabs, 4x a day, out The source(s) of the original Home Medication information: patient The following Medications were given to the patient in the Emergency Department: Zofran [IVP] IVP 4 mg, administered: 11/30/2016 8:29:00 PM IV NS IV Fluids bolus 0, then 1000 mL/hr, administered: 11/30/2016 8:29:00 PM DOXYCYCLINE MONOHYDRATE [PO] PO 100 mg, administered: 11/30/2016 9:57:00 PM The following Medications were prescribed to the patient: Zofran (orally disintegrating tablets) 4 mg: take 1-2 orally every 6 hours as needed for nausea. Dispense fifteen (15). No refill. Substitution is permissible. -- Chanel Olivares MD Doxycycline 100 mg: Take 1 capsule orally every 12 hours for 7 days. No refill. -- Chanel Olivares MD
--- NOTE | 2016-12-05 22:13 | ED MAR SUMMARY ---
..... Medication Administration Record [facility] [address] [place] [address] Patient: CINTHIA JACKSON Visit ID: [id number] 61y, M Weight: 68.4 kg Height/Length: 63 in BMI: 26.7 ALLERGIES: Sulfamethoxazole, Calamine, Latex, Penicillins, Phenergan, Tape, Trazodone Start 20:29 11/30/2016 [facility]ird, Stop 21:43 11/30/2016 Olinda Barrera Medication Administered: IV NS (SALINE), Dose: IV Fluids over 1 hour(s), Rate: 1000 mL/hr, Dispensed: 1000 mL bag, Site: #1 right forearm. Medication Ordered: IV NS : initial bolus 1000 mL (1000 mL/hr), then none - (NOW). Given 20:29 11/30/2016 Olinda Barrera Medication Administered: ZOFRAN [IVP] (ONDANSETRON HCL), Dose: 4 mg IVP over 2 minute(s), Site: #1 right forearm. Medication Ordered: Zofran IV 8 mg (NOW). Given 21:57 11/30/2016 Olinda Barrera Medication Administered: DOXYCYCLINE MONOHYDRATE [PO], Dose: 100 mg PO. Medication Ordered: Doxycycline Monohydrate PO 100 mg (NOW).
== END 2016-11-30 22:00 | disposition home or self-care (01) ==
LOC: ED SRH 18:47
DX: J20.8 Acute bronchitis due to other specified organisms (principal); B34.9 Viral infection, unspecified; L76.82 Other postprocedural complications of skin and subcutaneous tissue; L03.311 Cellulitis of abdominal wall; R11.2 Nausea with vomiting, unspecified; Z87.891 Personal history of nicotine dependence; E11.9 Type 2 diabetes mellitus without complications; Z79.4 Long term (current) use of insulin; Z79.899 Other long term (current) drug therapy; Z79.51 Long term (current) use of inhaled steroids; Z88.0 Allergy status to penicillin; Z88.8 Allergy status to other drugs, medicaments and biological substances; Z91.040 Latex allergy status; Z88.2 Allergy status to sulfonamides; I10 Essential (primary) hypertension
CPT/HCPCS: 90100; 95059